=== PATIENT | female | born 1985 | race Caucasian/White ===

== ENCOUNTER 2018-08-14 17:42 | Emergency (ER) | payer SELFPAY ==
--- NOTE | 2018-08-14 18:25 | RADIOLOGY REPORT (SQ) ---
EXAM DESCRIPTION: HAND RIGHT 3 VIEWS COMPLETED DATE/TIME: 08/14/2018 6:16 pm REASON FOR STUDY: deformed right 4th finger COMPARISON: None. EXAM PARAMETERS: NUMBER OF VIEWS: Three views. TECHNIQUE: AP, lateral and oblique radiographic images acquired of the right hand. LIMITATIONS: None. FINDINGS: MINERALIZATION: Normal. BONES: PIP subluxation 4th digit. There is chronic deformity of the distal proximal phalanx. JOINTS: No effusions. SOFT TISSUES: No soft tissue swelling. No foreign body. OTHER: No other significant finding. IMPRESSION: PIP subluxation of the 4th digit. Chronic deformity of the distal 4th proximal phalanx. TECHNICAL DOCUMENTATION: JOB ID: [id number] [email or web address]- All Rights Reserved Reading location - IP/workstation name: [email or web address]
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
[2018-08-14] MEDS ORDERED: MORPHINE SULFATE 10 MG/ML INJ IM ONE (19:08)
[2018-08-14] MEDS ORDERED: IBUPROFEN 600 MG TABLET PO ONE (19:09)
[2018-08-14] MEDS ORDERED: ACETAMINOPHEN 325 MG TABLET PO ONE (19:09)
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
--- NOTE | 2018-08-14 19:42 | RADIOLOGY REPORT (SQ) ---
EXAM DESCRIPTION: HAND RIGHT 2 VIEWS COMPLETED DATE/TIME: 08/14/2018 7:28 pm REASON FOR STUDY: reduction COMPARISON: 08/14/2018 EXAM PARAMETERS: NUMBER OF VIEWS: Two view. TECHNIQUE: AP and lateral radiographic images acquired of the right hand. LIMITATIONS: None. FINDINGS: Postreduction views show that the subluxation of the 4th PIP joint has been reduced. IMPRESSION: Successful reduction. No fracture is seen. TECHNICAL DOCUMENTATION: JOB ID: [id number] [employer]- All Rights Reserved Reading location - IP/workstation name: [email or web address]
[2018-08-14 20:20] VITALS: BP 120/72
== END 2018-08-14 20:18 | disposition other institution (70) ==
LOC: ER 17:42
DX: S09.90XA Unspecified injury of head, initial encounter (principal); S00.83XA Contusion of other part of head, initial encounter; S63.259A Unspecified dislocation of unspecified finger, initial encounter; S50.01XA Contusion of right elbow, initial encounter; Y00.XXXA Assault by blunt object, initial encounter; Y92.148 Other place in prison as the place of occurrence of the external cause; Z98.51 Tubal ligation status; Z91.040 Latex allergy status
CPT/HCPCS: 99284; 96372; 73080; 73130; 73120; 70450; 26770; J2270

== ENCOUNTER → 2019-03-06 | Outpatient (CLI) | payer OTHER ==
--- NOTE | 2019-03-06 15:50 | WOMENS IMAGING REPORT ---
EXAM DESCRIPTION: BILAT DIAGNOSTIC MAMMO W/CAD; U/S BREAST UNILAT LIMITED COMPLETED DATE/TIME: 03/06/2019 11:05 am; 03/06/2019 12:37 pm REASON FOR STUDY: N63.10 RIGHT BREAST; N63.20 LEFT BREAST; BILATERAL DIAGNOSTIC MAMMOGRAM; N63.10 RI GHT BREAST; N63.20 LEFT BREAST N63.10 UNSPECIFIED LUMP IN THE RIGHT BREAST, UNSPECIFIED ORAL N63.20 UNSPECIFIED LUMP IN THE LEFT BREAST, UNSPECIFIED QUAD COMPARISON: None. EXAM PARAMETERS: Standard craniocaudal and mediolateral oblique views of each breast recorded using digital acquisition. Additional bilateral true lateral and spot compression views. Additional bilateral targeted breast ultrasound. Read with the assistance of CAD: .[facility] - [employer] Or Luggage Porter Version 9.2 LIMITATIONS: None. FINDINGS: RIGHT BREAST MASSES: No suspicious masses. CALCIFICATIONS: No new or suspicious calcifications. ARCHITECTURAL DISTORTION: None. DEVELOPING DENSITY: None. ASYMMETRY: None noted. OTHER: No other significant findings. Ultrasound: Scanning is performed in the area of palpable abnormality at approximately 9 o'clock. T here is dense echogenic fibroglandular tissue but no mass or tissue distortion. LEFT BREAST MASSES: No suspicious masses. CALCIFICATIONS: No new or suspicious calcifications. ARCHITECTURAL DISTORTION: None. DEVELOPING DENSITY: None. ASYMMETRY: None noted. OTHER: No other significant finding. Ultrasound: Scanning in palpable areas at approximately 1- 2 and 3 o'clock. Dense echogenic fibrogl andular tissue. No mass or tissue distortion. IMPRESSION: No worrisome findings in the breasts. BREAST DENSITY: c. The breasts are heterogeneously dense, which may obscure small masses. BIRAD: ASSESSMENT: 2 Benign findings. RECOMMENDATION: RECOMMENDED FOLLOW UP: Clinical followup. Age-appropriate annual mammographic scree heather based on risk factors and family history. SPECIFIC INTERVENTION/IMAGING/CONSULTATION RECOMMENDED:No additional intervention/ imaging/consultati on needed at this time. COMMUNICATION:The negative/benign results were communicated to the patient. COMMENT: The patient has been notified of the results by letter per MQSA requirements. Additional no tification policies are in place for contacting patient with suspicious or incomplete findings. Quality ID #225: The [employer] recommends an annual screening mammogram for women aged 40 years or over. This facility utilizes a reminder system to ensure that all patients receive reminder letters, and/or direct phone calls for appointments. This includes reminders for routine scr eening mammograms, diagnostic mammograms, or other Breast Imaging Interventions when appropriate. Th is patient will be placed in the appropriate reminder system. TECHNICAL DOCUMENTATION: FINDING NUMBER: (1) ASSESSMENT: (1) JOB ID: [id number] [email or web address]- All Rights Reserved Reading location - IP/workstation name: [email or web address]
--- NOTE | 2019-03-06 15:50 | WOMENS IMAGING REPORT ---
EXAM DESCRIPTION: BILAT DIAGNOSTIC MAMMO W/CAD; U/S BREAST UNILAT LIMITED COMPLETED DATE/TIME: 03/06/2019 11:05 am; 03/06/2019 12:37 pm REASON FOR STUDY: N63.10 RIGHT BREAST; N63.20 LEFT BREAST; BILATERAL DIAGNOSTIC MAMMOGRAM; N63.10 RI GHT BREAST; N63.20 LEFT BREAST N63.10 UNSPECIFIED LUMP IN THE RIGHT BREAST, UNSPECIFIED ORAL N63.20 UNSPECIFIED LUMP IN THE LEFT BREAST, UNSPECIFIED QUAD COMPARISON: None. EXAM PARAMETERS: Standard craniocaudal and mediolateral oblique views of each breast recorded using digital acquisition. Additional bilateral true lateral and spot compression views. Additional bilateral targeted breast ultrasound. Read with the assistance of CAD: .[facility] - [employer] Probation Officer Version 9.2 LIMITATIONS: None. FINDINGS: RIGHT BREAST MASSES: No suspicious masses. CALCIFICATIONS: No new or suspicious calcifications. ARCHITECTURAL DISTORTION: None. DEVELOPING DENSITY: None. ASYMMETRY: None noted. OTHER: No other significant findings. Ultrasound: Scanning is performed in the area of palpable abnormality at approximately 9 o'clock. T here is dense echogenic fibroglandular tissue but no mass or tissue distortion. LEFT BREAST MASSES: No suspicious masses. CALCIFICATIONS: No new or suspicious calcifications. ARCHITECTURAL DISTORTION: None. DEVELOPING DENSITY: None. ASYMMETRY: None noted. OTHER: No other significant finding. Ultrasound: Scanning in palpable areas at approximately 1- 2 and 3 o'clock. Dense echogenic fibrogl andular tissue. No mass or tissue distortion. IMPRESSION: No worrisome findings in the breasts. BREAST DENSITY: c. The breasts are heterogeneously dense, which may obscure small masses. BIRAD: ASSESSMENT: 2 Benign findings. RECOMMENDATION: RECOMMENDED FOLLOW UP: Clinical followup. Age-appropriate annual mammographic scree heather based on risk factors and family history. SPECIFIC INTERVENTION/IMAGING/CONSULTATION RECOMMENDED:No additional intervention/ imaging/consultati on needed at this time. COMMUNICATION:The negative/benign results were communicated to the patient. COMMENT: The patient has been notified of the results by letter per MQSA requirements. Additional no tification policies are in place for contacting patient with suspicious or incomplete findings. Quality ID #225: The [employer] recommends an annual screening mammogram for women aged 40 years or over. This facility utilizes a reminder system to ensure that all patients receive reminder letters, and/or direct phone calls for appointments. This includes reminders for routine scr eening mammograms, diagnostic mammograms, or other Breast Imaging Interventions when appropriate. Th is patient will be placed in the appropriate reminder system. TECHNICAL DOCUMENTATION: FINDING NUMBER: (1) ASSESSMENT: (1) JOB ID: [id number] [employer]- All Rights Reserved Reading location - IP/workstation name: [email or web address]
--- NOTE | 2019-03-06 15:50 | WOMENS IMAGING REPORT ---
EXAM DESCRIPTION: BILAT DIAGNOSTIC MAMMO W/CAD; U/S BREAST UNILAT LIMITED COMPLETED DATE/TIME: 03/06/2019 11:05 am; 03/06/2019 12:37 pm REASON FOR STUDY: N63.10 RIGHT BREAST; N63.20 LEFT BREAST; BILATERAL DIAGNOSTIC MAMMOGRAM; N63.10 RI GHT BREAST; N63.20 LEFT BREAST N63.10 UNSPECIFIED LUMP IN THE RIGHT BREAST, UNSPECIFIED ORAL N63.20 UNSPECIFIED LUMP IN THE LEFT BREAST, UNSPECIFIED QUAD COMPARISON: None. EXAM PARAMETERS: Standard craniocaudal and mediolateral oblique views of each breast recorded using digital acquisition. Additional bilateral true lateral and spot compression views. Additional bilateral targeted breast ultrasound. Read with the assistance of CAD: .[facility] - [employer] Stripping Machine Operator Version 9.2 LIMITATIONS: None. FINDINGS: RIGHT BREAST MASSES: No suspicious masses. CALCIFICATIONS: No new or suspicious calcifications. ARCHITECTURAL DISTORTION: None. DEVELOPING DENSITY: None. ASYMMETRY: None noted. OTHER: No other significant findings. Ultrasound: Scanning is performed in the area of palpable abnormality at approximately 9 o'clock. T here is dense echogenic fibroglandular tissue but no mass or tissue distortion. LEFT BREAST MASSES: No suspicious masses. CALCIFICATIONS: No new or suspicious calcifications. ARCHITECTURAL DISTORTION: None. DEVELOPING DENSITY: None. ASYMMETRY: None noted. OTHER: No other significant finding. Ultrasound: Scanning in palpable areas at approximately 1- 2 and 3 o'clock. Dense echogenic fibrogl andular tissue. No mass or tissue distortion. IMPRESSION: No worrisome findings in the breasts. BREAST DENSITY: c. The breasts are heterogeneously dense, which may obscure small masses. BIRAD: ASSESSMENT: 2 Benign findings. RECOMMENDATION: RECOMMENDED FOLLOW UP: Clinical followup. Age-appropriate annual mammographic scree heather based on risk factors and family history. SPECIFIC INTERVENTION/IMAGING/CONSULTATION RECOMMENDED:No additional intervention/ imaging/consultati on needed at this time. COMMUNICATION:The negative/benign results were communicated to the patient. COMMENT: The patient has been notified of the results by letter per MQSA requirements. Additional no tification policies are in place for contacting patient with suspicious or incomplete findings. Quality ID #225: The [employer] recommends an annual screening mammogram for women aged 40 years or over. This facility utilizes a reminder system to ensure that all patients receive reminder letters, and/or direct phone calls for appointments. This includes reminders for routine scr eening mammograms, diagnostic mammograms, or other Breast Imaging Interventions when appropriate. Th is patient will be placed in the appropriate reminder system. TECHNICAL DOCUMENTATION: FINDING NUMBER: (1) ASSESSMENT: (1) JOB ID: [id number] [employer]- All Rights Reserved Reading location - IP/workstation name: [email or web address]
== END ==
LOC: WI 12:24
PROVIDERS: ATTEND Family Medicine
DX: N63.10 Unspecified lump in the right breast, unspecified quadrant (principal); N63.20 Unspecified lump in the left breast, unspecified quadrant
CPT/HCPCS: 76642; 77066

== ENCOUNTER → 2019-04-25 | Outpatient (CLI) | payer OTHER ==
--- NOTE | 2019-04-25 17:01 | RADIOLOGY REPORT (SQ) ---
EXAM DESCRIPTION: VENOUS UNILATERAL LOWER COMPLETED DATE/TIME: 04/25/2019 4:49 pm REASON FOR STUDY: LLE SWELLING COMPARISON: None. TECHNIQUE: Dynamic and static caba scale and color images acquired of the left leg venous system. Se lected spectral images acquired with additional compression and augmentation maneuvers. The contralat eral common femoral vein and saphenofemoral junction were also imaged. Images stored on PACS. LIMITATIONS: None. FINDINGS: COMMON FEMORAL: Normal phasicity, compression and augmentation. No visualized echogenic ma terial on caba scale. No defects on color images. FEMORAL: Normal compression and augmentation. No visualized echogenic material on caba scale. No defe cts on color images. POPLITEAL: Normal compression, augmentation. No visualized echogenic material on caba scale. No defec ts on color images. CALF VESSELS: Normal compression, augmentation. No visualized echogenic material on caba scale. No de fects on color images. GSV and SSV: Normal compression, augmentation. No visualized echogenic material on caba scale. No def ects on color images. ANY DEEP VENOUS INSUFFICIENCY: Not evaluated. ANY EVIDENCE OF POPLITEAL CYST: No. OTHER: No other significant finding. CONTRALATERAL COMMON FEMORAL VEIN AND SAPHENOFEMORAL JUNCTION: Normal phasicity, compression and augmentation. No visualized echogenic material on caba scale. No de fects on color images. IMPRESSION: NO EVIDENCE DVT OR SVT IN THE LEFT LEG. TECHNICAL DOCUMENTATION: JOB ID: [id number] [employer]- All Rights Reserved Reading location - IP/workstation name: [email or web address]
== END ==
LOC: SP 15:50
PROVIDERS: ATTEND Family Medicine
DX: R22.42 Localized swelling, mass and lump, left lower limb (principal)
CPT/HCPCS: 93971

== ENCOUNTER 2019-12-22 21:20 | Emergency (ER) | payer MEDICAID, OTHER ==
[2019-12-22] MEDS ORDERED: NORMAL SALINE 1000 ML 1,000 ML IV ONE (23:44)
[2019-12-22 23:56] LABS: ABSOLUTE BASOPHILS # (AUTO) 0.1 10^3/uL (0.0-0.2); ABSOLUTE EOSINOPHILS # (AUTO) 0.1 10^3/uL (0.0-0.6); ABSOLUTE LYMPHOCYTES (AUTO) 3.7 10^3/uL (0.5-4.7); ABSOLUTE MONOCYTES (AUTO) 0.8 10^3/uL (0.1-1.4); ABSOLUTE NEUT (AUTO) 6.1 10^3/uL (1.7-8.2); BASOPHILS % (AUTO) 0.7 % (0-2); EOSINOPHILS % (AUTO) 1.2 % (0-6); HEMATOCRIT 40.9 % (36.0-47.0); LYMPHOCYTES % (AUTO) 34.3 % (13-45); MEAN CORPUSCULAR HEMOGLOBIN 29.7 pg (27.0-33.4); MEAN CORPUSCULAR HGB CONC 34.3 g/dL (32.0-36.0); MEAN CORPUSCULAR VOLUME 86 fl (80-97); MONOCYTES % (AUTO) 7.2 % (3-13); PLATELET COUNT 247 10^3/uL (150-450); RED BLOOD COUNT 4.73 10^6/uL (3.72-5.28); RED CELL DISTRIBUTION WIDTH 13.1 % (11.5-14.0); SEGMENTED NEUTROPHILS % (AUTO) 56.6 % (42-78); TOTAL CELLS COUNTED % (AUTO) 100 %; WHITE BLOOD COUNT 10.8 10^3/uL (4.0-10.5)
[2019-12-23] LABS: ALBUMIN 4.5 g/dL (3.5-5.0); ALKALINE PHOSPHATASE 62 U/L (38-126); ANION GAP 7 (5-19); ASPARTATE AMINO TRANSFERASE 32 U/L (14-36); BILIRUBIN,TOTAL 0.8 mg/dL (0.2-1.3); BLOOD UREA NITROGEN 12 mg/dL (7-20); CALCIUM 9.6 mg/dL (8.4-10.2); CARBON DIOXIDE 25 mmol/L (22-30); CHLORIDE 104 mmol/L (98-107); GLUCOSE 92 mg/dL (75-110); POTASSIUM 3.9 mmol/L (3.6-5.0); TOTAL PROTEIN 7.7 g/dL (6.3-8.2)
[2019-12-23 00:03] LABS: APPEARANCE,URINE CLEAR; BILIRUBIN,URINE NEGATIVE (NEGATIVE); COLOR,URINE YELLOW; GLUCOSE, URINE NEGATIVE (NEGATIVE); KETONES,URINE NEGATIVE (NEGATIVE); LEUKOCYTE ESTERASE,URINE NEGATIVE (NEGATIVE); NITRITE,URINE NEGATIVE (NEGATIVE); PROTEIN,URINE NEGATIVE (NEGATIVE); URINE SPECIFIC GRAVITY 1.017; UROBILINOGEN,URINE NEGATIVE mg/dL (<2.0)
[2019-12-23] MEDS ORDERED: KETOROLAC TROMETHAMINE INJ/PF 30 MG/1 ML SDV IV ONE (00:32)
--- NOTE | 2019-12-23 00:39 | ER Document Report ---
ED General - General Chief Complaint: Flank Pain Stated Complaint: ABDOMINAL PAIN Time Seen by Provider: 12/23/19 00:17 TRAVEL OUTSIDE OF THE [place] IN LAST 30 DAYS: No - HPI Notes: Patient is a 33-year-old female who presents to the emergency department for evaluation of pain in her right flank and pelvis area. She states she was getting up after dinner, her and herself are going to go have tattoos performed. She states she developed a sharp and stabbing pain in her pelvis. It is constant. It is made worse by movement and walking. It is also worsened by deep breaths. Nothing seems to make it better. She denies any fevers or chills. No nausea or vomiting. She is eating and drinking normal. Normal bowel movement today. No urinary symptoms. No vaginal discharge. No abnormal vaginal bleeding. She is in a monogamous relationship. She has no history of STDs. - Related Data Allergies/Adverse Reactions: diphenhydramine HCl [From Benadryl] Allergy (Intermediate, Verified 12/22/19 23:18) rash latex [Latex] Allergy (Intermediate, Verified 12/22/19 23:18) rash Penicillins Allergy (Intermediate, Verified 12/23/19 00:35) Past Medical History - General Information source: Patient - Social History Smoking Status: Current Every Day Smoker Chew tobacco use (# tins/day): No Frequency of alcohol use: None Drug Abuse: None Family History: Reviewed & Not Pertinent, Malignancy - Hodgkin's lymphoma and colon cancer in mother Pulmonary Medical History: Reports: Hx Asthma Neurological Medical History: Reports: Hx Seizures - Currently off Dilantin Renal/ Medical History: Denies: Hx Peritoneal Dialysis Malignancy Medical History: Reports: Hx Cervical Cancer - History Past Surgical History: Reports: Hx Tubal Ligation - Immunizations Immunizations up to date: Yes Hx Diphtheria, Pertussis, Tetanus Vaccination: Yes Review of Systems - Review of Systems Female Genitourinary: See HPI -: Yes All other systems reviewed and negative Physical Exam - Vital signs Vitals: Temp 98.3 F 12/22/19 23:18 - Notes Notes: Vital signs reviewed, please refer to chart. Head is normocephalic, atraumatic. Pupils equal round, reactive to light. Neck is supple without meningismus. Heart is regular rate and rhythm. Lungs are clear to auscultation bilaterally. Abdomen is soft, right pelvic tenderness, just medial to the anterior inferior iliac spine without rebound or guarding, normoactive bowel sounds throughout. Extremities without cyanosis, clubbing. Posterior calves are nontender. Peripheral pulses are equal. Skin is warm and dry. Patient is awake, alert, neurological exam is nonfocal. Course - Re-evaluation Re-evalutation: 12/23/19 00:38 Patient presents to the emergency department for evaluation. She had initial laboratory investigations as ordered. On exam, she has more pain in her pelvis and anywhere else. She denies any vaginal discharge, STD history, is in a monogamous relationship. Her is negative. I have concerns about a possible torsion given the development of such significant pain per the patient. She is given Toradol. I will send her for transvaginal ultrasound with Doppler. She is stable at this time, we will continue to monitor. 12/23/19 01:33 Patient's ultrasound reveals findings consistent with likely hemorrhagic cyst. Patient does not have especially painful periods, no history of endometriosis. She is medicated with Toradol. I will send her home with prescription strength anti-inflammatories and close follow-up. She is to return to the ER with worsening or new concerning symptoms of any sort. - Vital Signs Vital signs: Temp Pulse Resp BP Pulse Ox 98.3 F 12/22/19 23:18 - Laboratory Result Diagrams: 12/22/19 22:18 12/22/19 22:18 Laboratory results interpreted by me: 12/22/19 12/22/19 22:18 22:18 WBC 10.8 H Sodium 135.5 L ALT 37 H - Diagnostic Test Radiology reviewed: Reports reviewed Radiology results interpreted by me: 12/23/19 01:33 Transvaginal US 12/23/19 00:32 IMPRESSION: 1. Normal-appearing uterus and left ovary. 2. Hypoechoic mass in the right ovary. No torsion. This may represent a hemorrhagic cyst. Endometrioma might also have this appearance. Discharge - Discharge Clinical Impression: Hemorrhagic cyst of right ovary Condition: Stable Disposition: HOME, SELF-CARE Instructions: Ovarian Cyst ([facility]) Additional Instructions: Take medication as prescribed, preferably with food. Moist heat to the painful area. Follow-up with [facility] in 1 to 2 weeks. Return to the emergency department if you develop worsening or new concerning symptoms of any sort.
--- NOTE | 2019-12-23 01:22 | RADIOLOGY REPORT (SQ) ---
US PELVIS TRANSVAGINAL HISTORY: 33 years Female right pelvic pain. Evaluate for torsion. COMPARISON: No relevant studies are available for comparison. Technique: Endovaginal Imaging of the pelvis was performed. Color and spectral imaging was performed. Uterus: The uterus measures 9.2 x 4.9 x 3.8 cm. Cervix is closed and measures 2.6 cm. There is a very small the both and cysts. The endometrium measures 10 mm. Right Ovary: The ovary measures 4.6 x 3.9 x 3.1 cm. It contains a hypoechoic mass measuring 3.3 x 2.8 x 2.6 cm. No torsion. Normal color and spectral doppler waveforms Left Ovary: The ovary measures 2.7 x 1.9 x 1.7 cm and is morphologically normal. Normal color and spectral doppler waveforms Other: No free fluid IMPRESSION: 1. Normal-appearing uterus and left ovary. 2. Hypoechoic mass in the right ovary. No torsion. This may represent a hemorrhagic cyst. Endometrioma might also have this appearance.
[2019-12-23 01:40] VITALS: BP 131/56
== END 2019-12-23 02:29 | disposition home or self-care (01) ==
LOC: ER 21:20
DX: N83.201 Unspecified ovarian cyst, right side (principal); R10.2 Pelvic and perineal pain; R10.9 Unspecified abdominal pain; F17.200 Nicotine dependence, unspecified, uncomplicated; J45.909 Unspecified asthma, uncomplicated; Z85.41 Personal history of malignant neoplasm of cervix uteri; Z98.51 Tubal ligation status; Z88.8 Allergy status to other drugs, medicaments and biological substances; Z91.040 Latex allergy status; Z88.0 Allergy status to penicillin
CPT/HCPCS: 99284; 96361; 96374; 36415; 83690; 85025; 80053; 81001; 76830; 93976; J1885; J7030